=== PATIENT | female | born 1995 | race Caucasian/White ===

== ENCOUNTER 2018-02-26 17:50 | Inpatient (IN) | payer MEDICAID ==
[~2018-02-26] VITALS: Ht 154.9 cm; Wt 87.7 kg
[~2018-02-26 17:50] MED LIST: IBUP-1222 PO; OXYC-302 PO; PREN-3 PO
[2018-02-26 18:02] VITALS: BP 113/64
[2018-02-26] MEDS ORDERED: OXYTOCIN 30U/ 0.9% NaCL 500ML 500 ML IV ONE (18:16)
[2018-02-26] MEDS: D5%-LACTATED RINGERS 1,000 ML IV SCH (18:16)
[2018-02-26] MEDS ORDERED: METOCLOPRAMIDE 5 MG/ML, 2ML IVPush PRN (18:30)
[2018-02-26] MEDS ORDERED: FENTANYL PF 100 MCG/2ML IV PRN (18:30)
[2018-02-26] MEDS ORDERED: FENTANYL PF 100 MCG/2ML IVPush PRN (18:30)
[2018-02-26] MEDS ORDERED: SODIUM CITRATE/CITRIC ACID 30 ML UDC PO PRN (18:30)
[2018-02-26] MEDS ORDERED: TERBUTALINE 1 MG/ML, 1ML IVPush PRN (18:30)
[2018-02-26] MEDS: LACTATED RINGERS 1,000 ML IV SCH (18:34)
[2018-02-26] MEDS ORDERED: NEWBORN KIT ONE (18:39)
[2018-02-26] MEDS ORDERED: OXYTOCIN 30U/ 0.9% NaCL 500ML 500 ML ONE (18:39)
[2018-02-26 18:40] LABS: BASOPHILS # (AUTO) 0.01 x10^3/uL (0-0.1); BASOPHILS % (AUTO) 0 % (0-1); EOSINOPHILS # (AUTO) 0.05 x10^3/uL (0-0.4); EOSINOPHILS % (AUTO) 0 % (1-7); LYMPHOCYTES # (AUTO) 2.72 x10^3/uL (1-3.4); LYMPHOCYTES % (AUTO) 21 % (22-44); MD NO; MEAN CORPUSCULAR HEMOGLOBIN 30.5 pg (27.0-34.8); MEAN CORPUSCULAR HGB CONC 34.4 g/dL (32.4-35.8); MEAN CORPUSCULAR VOLUME 88.6 fL (80-100); MONOCYTES % (AUTO) 5 % (2-9); NEUTROPHILS # (AUTO) 9.57 x10^3/uL (1.8-6.8); NEUTROPHILS % (AUTO) 73 % (42-75); PLATELET COUNT 246 x10^3/uL (130-400); RED BLOOD COUNT 3.99 x10^6/uL (3.82-5.3); RED CELL DISTRIBUTION WIDTH 13.5 % (9.6-15.2)
[2018-02-26] MEDS ORDERED: OXYTOCIN 30U/ 0.9% NaCL 500ML 500 ML IV PRN (20:39)
[2018-02-27] MEDS ORDERED: MISOPROSTOL 200 MCG TABLET PR PRN
[2018-02-27] MEDS ORDERED: ACETAMINOPHEN 325 MG TABLET PO PRN
[2018-02-27] MEDS ORDERED: DOCUSATE 100 MG CAPSULE PO PRN
[2018-02-27] MEDS ORDERED: METHYLERGONOVINE 0.2 MG/ML IM PRN
[2018-02-27] MEDS ORDERED: DIPH,PERTUSS(ACELL),TET VAC/PF NC IM-VACC PRN
[2018-02-27] MEDS ORDERED: CARBOPROST TROMETHAMINE 250 MCG/ML, 1ML IM PRN
[2018-02-27] MEDS ORDERED: MEASLES,MUMPS&RUBELLA VACC/PF 0.5 ML SQ PRN
[2018-02-27] MEDS ORDERED: RHOGAM FROM BLOOD BANK 1 NOTE EA IM/IV ONE
[2018-02-27] MEDS ORDERED: IBUPROFEN 600 MG TABLET PO PRN
[2018-02-27] MEDS ORDERED: IBUPROFEN 600 MG TABLET ONE (00:11)
[2018-02-27] MEDS ORDERED: OXYTOCIN 30U/ 0.9% NaCL 500ML 500 ML ONE (01:10)
[2018-02-27] MEDS: OXYTOCIN 30U/ 0.9% NaCL 500ML 500 ML IV SCH ×3 (02:00→19:57)
[2018-02-27] MEDS: LACTATED RINGERS 1,000 ML IV SCH (02:16)
[2018-02-27] MEDS: D5%-LACTATED RINGERS 1,000 ML IV SCH (02:16)
[2018-02-27 02:30] VITALS: BP 106/60
[2018-02-27 08:00] VITALS: BP 106/71
[2018-02-27 08:12] LABS: BASOPHILS # (AUTO) 0.03 x10^3/uL (0-0.1); BASOPHILS % (AUTO) 0 % (0-1); EOSINOPHILS # (AUTO) 0.04 x10^3/uL (0-0.4); EOSINOPHILS % (AUTO) 0 % (1-7); LYMPHOCYTES # (AUTO) 2.28 x10^3/uL (1-3.4); LYMPHOCYTES % (AUTO) 16 % (22-44); MD NO; MEAN CORPUSCULAR HEMOGLOBIN 30.2 pg (27.0-34.8); MEAN CORPUSCULAR HGB CONC 34.1 g/dL (32.4-35.8); MEAN CORPUSCULAR VOLUME 88.5 fL (80-100); MEAN PLATELET VOLUME 9.5 fL (7.4-10.4); MONOCYTES # (AUTO) 0.88 x10^3/uL (0.2-0.8); MONOCYTES % (AUTO) 6 % (2-9); NEUTROPHILS % (AUTO) 78 % (42-75); PLATELET COUNT 264 x10^3/uL (130-400); RED CELL DISTRIBUTION WIDTH 13.4 % (9.6-15.2)
[2018-02-27] MEDS: PRENATAL VIT/IRON/FA 1 EACH TABLET PO SCH (09:00)
[2018-02-27 14:00] VITALS: BP 116/82
[2018-02-27 17:35] VITALS: BP 129/78
[2018-02-27 20:15] VITALS: BP 105/66
[2018-02-28] MEDS: OXYTOCIN 30U/ 0.9% NaCL 500ML 500 ML IV SCH (05:57)
[2018-02-28 07:15] VITALS: BP 103/72
[2018-02-28] MEDS: PRENATAL VIT/IRON/FA 1 EACH TABLET PO SCH (09:00)
== END 2018-02-28 10:55 | disposition home or self-care (01) | DRG 775 ==
LOC: LDOP 17:50 → UNDOADMIN 18:30 → LDIP 18:30 → EDIP 18:30 → 2NW 02-27 02:10
PROVIDERS: ADMIT Obstetrics & Gynecology Gynecology; ATTEND Obstetrics & Gynecology Gynecology
PROC: 10E0XZZ Delivery of Products of Conception, External Approach (ICD-10-PCS; principal; 2018-02-26)
PROC: 3E0234Z Introduction of Serum, Toxoid and Vaccine into Muscle, Percutaneous Approach (ICD-10-PCS; 2018-02-27)
PROC: 30233S1 Transfusion of Nonautologous Globulin into Peripheral Vein, Percutaneous Approach (ICD-10-PCS; 2018-02-27)
DX: O34.219 Maternal care for unspecified type scar from previous cesarean delivery (principal); O60.14X0 Preterm labor third trimester with preterm delivery third trimester, not applicable or unspecified; O42.913 Preterm premature rupture of membranes, unspecified as to length of time between rupture and onset of labor, third trimester; Z37.0 Single live birth; Z3A.35 35 weeks gestation of pregnancy; Z23 Encounter for immunization
CPT/HCPCS: 36415; 82803; 85025; 85461; 86850; 86870; 86900; 86922; 86923; J2790; J2590; J7120